=== PATIENT | female | born 2000 | race Two or more races ===

== ENCOUNTER 2024-07-29 00:05 | Emergency (ER) | payer OTHER ==
[~2024-07-29] VITALS: Ht 160 cm; Wt 63.5 kg
[2024-07-29] MEDS ORDERED: KETOROLAC TROMETHAMINE 10 MG TABLET PO STA (01:47)
[2024-07-29] MEDS ORDERED: KETOROLAC TROMETHAMINE 10 MG TABLET PO ONE (01:56)
[2024-07-29 02:22] LABS: HEMATOCRIT 41.2 % (36.0-45.00); MEAN CELL VOLUME 90.9 fL (80.00-100.00); MEAN CORPUSCULAR HEMOGLOBIN 30.8 pg (27.00-32.0); MEAN CORPUSCULAR HGB CONC 33.9 g/dl (32.0-36.0); PLATELET COUNT 287 K/uL (150-450); RED BLOOD COUNT 4.53 M/uL (4.00-6.00); RED CELL DISTRIBUTION WIDTH 13.5 % (11.5-14.5)
[2024-07-29 03:08] LABS: ANION GAP 9 (10.0-20.0); BLOOD UREA NITROGEN 12 mg/dL (7-18); BUN CREA RATIO 13 (7.0-25.0); CALCIUM 9.3 mg/dL (8.5-10.1); CARBON DIOXIDE 32 mEq/L (21-32); CHLORIDE 104 mmol/L (98-107); CREATININE SERUM 0.91 mg/dL (0.55-1.02); GLUCOSE FASTING 104 mg/dL (65-100); OSMOLALITY SERUM 281 MOSM/KG (275-295); POTASSIUM 3.91 mEq/L (3.5-5.1); SODIUM 141 mmol/L (136-145)
[2024-07-29 03:20] LABS: HCG QUANTITATIVE < 1 mUI/mL (1-3)
[2024-07-29] MEDS ORDERED: ESGIC 50-325-41 EACH PO (05:02)
== END 2024-07-29 05:22 ==
LOC: ER 00:07
PROVIDERS: General Practice
DX: R51.9 Headache, unspecified (principal); Z91.013 Allergy to seafood

== ENCOUNTER 2025-04-03 19:42 | Emergency (ER) | payer OTHER ==
[~2025-04-03] VITALS: Ht 160 cm; Wt 61.2 kg
[~2025-04-03 19:42] MED LIST: ESGIC 50-325-41 EACH PO
[2025-04-03] MEDS ORDERED: ORPHENADRINE CITRATE 30 MG/ML AMPUL ONE (20:45)
[2025-04-03] MEDS ORDERED: KETOROLAC TROMETHAMINE 60 MG VIAL IM ONE ×2 (20:45)
[2025-04-03] MEDS ORDERED: ORPHENADRINE CITRATE 30 MG/ML AMPUL IM ONE (20:45)
== END 2025-04-03 21:29 | disposition home or self-care (01) ==
LOC: ER 19:42
DX: R00.2 Palpitations (principal); Z91.013 Allergy to seafood